=== PATIENT | male | born 1965 | race Caucasian/White ===

== ENCOUNTER 2017-02-17 20:30 | Emergency (ER) | payer SELFPAY ==
[2017-02-17 21:02] VITALS: BP 161/107
[2017-02-17 23:00] LABS: ACETAMINOPHEN 1 ug/mL (10-30)
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
== END 2017-02-18 08:30 ==
LOC: JD.ED 20:30
DX: R45.851 Suicidal ideations (principal); F10.120 Alcohol abuse with intoxication, uncomplicated; F29 Unspecified psychosis not due to a substance or known physiological condition; I10 Essential (primary) hypertension; J44.9 Chronic obstructive pulmonary disease, unspecified; F31.9 Bipolar disorder, unspecified; F17.210 Nicotine dependence, cigarettes, uncomplicated; Z98.890 Other specified postprocedural states; Z85.038 Personal history of other malignant neoplasm of large intestine; Z90.5 Acquired absence of kidney; Z88.5 Allergy status to narcotic agent; Y90.1 Blood alcohol level of 20-39 mg/100 ml
CPT/HCPCS: 36415; 80053; 80306; 84443; 85025; 93005; 99285; G0480